=== PATIENT | female | born 1995 | race Caucasian/White ===

== ENCOUNTER → 2016-12-25 | Outpatient (CLI) | payer BC ==
[~2016-12-25] MED LIST: STRATTERA40 MG PO; SYNTHROID0.125 MG PO; TYLENOL 325MG325 MG PO
== END ==
LOC: COL.RAD 10:42
DX: D41.02 Neoplasm of uncertain behavior of left kidney (principal); R93.7 Abnormal findings on diagnostic imaging of other parts of musculoskeletal system; R59.0 Localized enlarged lymph nodes; R63.4 Abnormal weight loss; R31.0 Gross hematuria
CPT/HCPCS: Q9967